=== PATIENT | male | born 1960 | race Caucasian/White ===

== ENCOUNTER 2018-10-31 14:12 | Emergency (ER) | payer BC ==
[2018-10-31 14:37] VITALS: BP 126/89
--- NOTE | 2018-10-31 15:26 | CR ---
Chest: Portable view of the chest was obtained. Comparison: No prior chest x-ray. Heart size is within normal limits for portable technique. Tortuous thoracic aorta is seen. Lungs are clear with no acute parenchymal change. Bony structures are grossly intact. Impression: 1. Nothing acute is seen on portable chest x-ray. Diagnostic code #1
--- NOTE | 2018-10-31 16:42 | EDM.PDOC ---
ED HPI GENERAL MEDICAL PROBLEM - General Chief Complaint: Cardiovascular Problem Stated Complaint: [facility] Time Seen by Provider: 10/31/18 16:06 Source of Information: Reports: Patient, RN Notes Reviewed, Significant Other ( Girlfriend) History Limitations: Reports: No Limitations - History of Present Illness INITIAL COMMENTS - FREE TEXT/NARRATIVE: The patient states that he was digging fence, when he developed a tightness in his throat, but no chest discomfort. He states that he has a history of GERD, but that this sensation was not the same as that. He drove himself home, asked for a little while, then checked his blood pressure. His blood pressure was found to be high, but more concerning was that the blood pressure machine recorded his heart rate to be around 190. He states that he took 2 aspirin and went to lie down, and when he rechecked his blood pressure later, his heart rate was still elevated, therefore EMS was called. EMS reportedly found the patient to be in SVT at around 210 bpm per an ECG, however, this is per their written report - they did not leave the rhythm strip or ECG for us to examine. No associated dyspnea, nausea, diaphoresis, or sense of impending doom. The patient states that the paramedics placed an IV, and that his symptoms then resolved en route to the ED. Here in the ED, the patient states that he feels completely back to normal. The patient denies prior similar symptoms. The patient does not have a PCP. - Related Data Allergies Allergy/AdvReac Type Severity Reaction Status Date / Time No Known Allergies Allergy Verified 10/31/18 14:33 Home Meds: Home Meds . [No Known Home Meds] 05/29/16 [History] Past Medical History Cardiovascular History: Reports: High Cholesterol (untreated) Gastrointestinal History: Reports: GERD Endocrine/Metabolic History: Reports: Obesity/BMI 30+ - Past Surgical History Musculoskeletal Surgical History: Reports: Amputation (left thumb, partial) Social & Family History - Family History Family Medical History: Noncontributory - Tobacco Use Smoking Status *Q: Never Smoker - Caffeine Use Caffeine Use: Reports: Coffee - Alcohol Use Alcohol Use History: Yes Alcohol Use Frequency: Socially (occasionally to excess) - Recreational Drug Use Recreational Drug Use: No - Living Situation & Occupation Living situation: Reports: , with Significant Other (Girlfriend) 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 ED EXAM, GENERAL - Physical Exam Exam: See Below Exam Limited By: No Limitations General Appearance: Alert, WD/WN, No Apparent Distress Eye Exam: Bilateral Eye: EOMI, Normal Inspection Ears: Normal External Exam, Hearing Grossly Normal Nose: Normal Inspection Throat/Mouth: Normal Inspection, Normal Lips, Normal Voice, No Airway Compromise Head: Atraumatic, Normocephalic Neck: Normal Inspection, Full Range of Motion Respiratory/Chest: No Respiratory Distress, Lungs Clear, Normal Breath Sounds, No Accessory Muscle Use Cardiovascular: Normal Peripheral Pulses, Regular Rate, Rhythm, No Gallop, No JVD, No Murmur, No Rub Peripheral Pulses: 4+: Radial (L), Radial (R) GI/Abdominal: Normal Bowel Sounds, Soft, Non-Tender, No Organomegaly, No Distention, No Abnormal Bruit, No Mass, Other (Obese) (Male) Exam: Deferred Rectal (Males) Exam: Deferred Back Exam: Normal Inspection, Full Range of Motion, NT Extremities: Normal Inspection, Normal Range of Motion, No Pedal Edema, Normal Capillary Refill Neurological: Alert, Oriented, Normal Cognition, No Motor/Sensory Deficits Psychiatric: Normal Affect Skin Exam: Warm, Dry, Intact, Normal Color, No Rash EKG INTERPRETATION EKG Date: 10/31/18 Time: 14:33 Rhythm: Other (Sinus tachycardia) Rate (Beats/Min): 103 [place]: Normal P-Wave: Enlarged (LAE) QRS: Normal ST-T: Normal QT: Prolonged (QTc 485 ms) Comparison: NA - No Prior EKG Course - Vital Signs Last Recorded V/S: Last Vital Signs Temp 36.9 C 10/31/18 14:33 Pulse 102 H 10/31/18 14:33 Resp 18 10/31/18 14:33 BP 126/89 10/31/18 14:33 Pulse Ox 99 10/31/18 14:33 - Orders/Labs/Meds Labs: Laboratory Tests 10/31/18 10/31/18 Range/Units 14:25 14:25 WBC 7.38 (4.23-9.07) K/mm3 RBC 5.36 (4.63-6.08) M/mm3 Hgb 15.6 (13.7-17.5) gm/L Hct 46.7 (40.1-51.0) % MCV 87.1 (79.0-92.2) fl MCH 29.1 (25.7-32.2) pg MCHC 33.4 (32.2-35.5) g/dl RDW Std Deviation 43.0 (35.1-43.9) fL Plt Count 164 (163-337) K/mm3 MPV 11.0 (9.4-12.3) fl Neutrophils % (Manual) 54 (40-60) % Band Neutrophils % 0 (0-10) % Lymphocytes % (Manual) 42 H (20-40) % Atypical Lymphs % 0 % Monocytes % (Manual) 3 (2-10) % Eosinophils % (Manual) 0 L (0.8-7.0) % Basophils % (Manual) 1 (0.2-1.2) Platelet Estimate Adequate Plt Morphology Comment Normal RBC Morph Comment Normal Sodium 142 (136-145) mEq/L Potassium 3.9 (3.5-5.1) mEq/L Chloride 105 (98-107) mEq/L Carbon Dioxide 25 (21-32) mEq/L Anion Gap 15.9 H (5-15) BUN 18 (7-18) mg/dL Creatinine 1.1 (0.7-1.3) mg/dL Est Cr Clr Drug Dosing TNP Estimated GFR (MDRD) > 60 (>60) mL/min BUN/Creatinine Ratio 16.4 (14-18) Glucose 86 (74-106) mg/dL Calcium 8.9 (8.5-10.1) mg/dL Total Bilirubin 0.6 (0.2-1.0) mg/dL AST 35 (15-37) U/L ALT 53 (16-63) U/L Alkaline Phosphatase 70 (46-116) U/L Troponin I < 0.017 (0.00-0.056) ng/mL Total Protein 7.5 (6.4-8.2) g/dl Albumin 4.0 (3.4-5.0) g/dl Globulin 3.5 gm/dL Albumin/Globulin Ratio 1.1 (1-2) - Re-Assessments/Exams Free Text/Narrative Re-Assessment/Exam: 10/31/18 16:34 Portable chest x-ray is read by Dr. Lyn as: 1. Nothing acute is seen on portable chest x-ray. The patient's CBC is unremarkable. His CMP is unremarkable. His troponin is undetectably low. While the paramedics documented in their note that the patient had SVT at 210 bpm, they did not actually leave the rhythm strip or ECG that they indicated they collected, therefore I will have to take their word for it that the patient was in SVT. Today's workup is unremarkable. I will discharge the patient home with a referral to a PCP, where he can have a thorough general physical exam, that might include a cardiac stress test, check of cholesterol, as well as a colonoscopy, evaluation for prostate disorders, etc. 10/31/18 16:57 The rhythm strip acquired by the paramedics has been faxed to us. The patient does in fact appear to have been in SVT at around 200 bpm. The rhythm is narrow complex and regular. No P waves are seen. Departure - Departure Time of Disposition: 16:35 Disposition: Home, Self-Care 01 Condition: Good Clinical Impression: SVT (supraventricular tachycardia) Instructions: Supraventricular Tachycardia, Adult, [id number] Referrals: Jonny Alexander MD [Physician] - Forms: ED Department Discharge Additional Instructions: You were seen in the emergency room after developing tightness in her throat and a rapid heartbeat. The air medics indicated that you were in SVT, which resolved on its own prior to arriving to the ER. Workup in the ER included blood work, a chest x-ray, and an ECG, all of which were unremarkable. If your symptoms recur, we recommend that you return to the ER as soon as possible. Do not drive your self. We recommend that you follow-up with Dr. Jonyn Chavez in the clinic, to establish a primary care physician. If any other problems, please do not hesitate to return to the ER.
== END 2018-10-31 16:58 | disposition home or self-care (01) ==
LOC: JD.ED 14:12
DX: I47.1 Supraventricular tachycardia (principal); E66.9 Obesity, unspecified
CPT/HCPCS: 36415; 71045; 71045-26; 80053; 84484; 85007; 85027; 93005; 99285-25

== ENCOUNTER 2021-01-21 19:07 | Inpatient (IN) | payer BC ==
[2021-01-21] MEDS ORDERED: Ondansetron 4 MG/2 ML SDV IVPUSH ONE (19:27)
[2021-01-21] MEDS ORDERED: Sodium Chloride 0.9% 10 ML Syringe FLUSH PRN (19:27)
[2021-01-21] MEDS ORDERED: Dexamethasone 4 MG/ML SDV IVPUSH ONE (19:29)
[2021-01-21] MEDS ORDERED: Sodium Chloride 0.9% 1,000 ML IV SCH (19:30)
--- NOTE | 2021-01-21 19:35 | EDM.PDOC ---
ED HPI GENERAL MEDICAL PROBLEM - General Chief Complaint: Chest Pain Stated Complaint: [facility] Time Seen by Provider: 01/21/21 19:19 Source of Information: Reports: Patient, EMS History Limitations: Reports: No Limitations - History of Present Illness INITIAL COMMENTS - FREE TEXT/NARRATIVE: The patient presents by [facility] with cough, fever, shortness of breath and nausea. He is COVID 19 positive for the past 8 days. He has been laying on his stomach and watching his oxygen saturations. He has been nauseated and not able to eat or drink much. He has a low grade temp. He has some diarrhea. He has been coughing up some yellow phlegm but today he coughed up some blood. He did not get the vaccine. He has no chest pain. He has no abdominal pain. EMS said his oxygen saturations were in the upper 80s. They have him on a nonrebreather. He has no history of hypertension or diabetes. He does have high cholesterol. Onset: Gradual Duration: Day(s): (8) Severity: Moderate Improves with: Reports: None Worsens with: Reports: None Associated Symptoms: Reports: Cough, Fever/Chills, Nausea/Vomiting, Shortness of Breath. Denies: Chest Pain, Headaches - Related Data Allergies Allergy/AdvReac Type Severity Reaction Status Date / Time No Known Allergies Allergy Verified 10/31/18 14:33 Home Meds: Home Meds . [No Known Home Meds] 05/29/16 [History] Past Medical History - Past Health History Medical/Surgical History: Denies Medical/Surgical History Cardiovascular History: Reports: High Cholesterol (untreated) Gastrointestinal History: Reports: GERD Genitourinary History: Reports: Renal Calculus Musculoskeletal History: Reports: Other (See Below) Other Musculoskeletal History: thumb cut off and replaced Endocrine/Metabolic History: Reports: Obesity/BMI 30+ - Past Surgical History Musculoskeletal Surgical History: Reports: Amputation (left thumb, partial) Social & Family History - Family History Family Medical History: No Pertinent Family History - Caffeine Use Caffeine Use: Reports: Coffee - Living Situation & Occupation Living situation: Reports: , with Significant Other (Girlfriend) 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 Denies: Abdominal Pain, Vomiting Musculoskeletal: Reports: No Symptoms ED EXAM, GENERAL - Physical Exam Exam: See Below Exam Limited By: No Limitations General Appearance: Alert, No Apparent Distress Ears: Normal External Exam Nose: Normal Inspection Head: Atraumatic, Normocephalic Neck: Normal Inspection Respiratory/Chest: No Respiratory Distress, Decreased Breath Sounds Cardiovascular: Regular Rate, Rhythm, No Edema, No Murmur GI/Abdominal: Soft, Non-Tender, No Organomegaly, No Mass Back Exam: Normal Inspection Extremities: Normal Inspection Neurological: Alert, Oriented, No Motor/Sensory Deficits Course - Vital Signs Last Recorded V/S: Last Vital Signs Temp Pulse 68 01/22/21 05:35 Resp 18 01/22/21 05:35 BP 120/70 01/22/21 05:35 Pulse Ox 94 L 01/22/21 05:35 - Orders/Labs/Meds Orders: Active Orders 24 hr Category Date Time Status Cardiac Monitoring [RC] . DIRECTED Care 01/21/21 19:28 Active Oxygen Therapy [RC] PRN Care 01/21/21 19:28 Active Peripheral IV Care [RC] . DIRECTED Care 01/21/21 19:28 Active HEPATIC FUNCTION PANEL,HFP [CHEM] DAILY Lab 01/22/21 21:45 Ordered HEPATIC FUNCTION PANEL,HFP [CHEM] DAILY Lab 01/23/21 21:45 Ordered HEPATIC FUNCTION PANEL,HFP [CHEM] DAILY Lab 01/24/21 21:45 Ordered HEPATIC FUNCTION PANEL,HFP [CHEM] DAILY Lab 01/25/21 21:45 Ordered Sodium Chloride 0.9% [Normal Saline] 1,000 ml Med 01/21/21 19:30 Active IV .BOLUS Sodium Chloride 0.9% [Saline Flush] Med 01/21/21 19:27 Active 10 ml FLUSH ASDIRECTED PRN ED Antiemetic Medication Reflex [OM.PC] Stat Oth 01/21/21 19:28 Ordered Peripheral IV Insertion Adult [OM.PC] Stat Oth 01/21/21 19:27 Ordered Medication Orders Sodium Chloride (Normal Saline) 1,000 mls @ 1,000 mls/hr IV .BOLUS JAYDA Last Admin: 01/21/21 20:22 Dose: 1,000 mls/hr Documented by: KASIA Sodium Chloride (Sodium Chloride 0.9% 10 Ml Syringe) 10 ml FLUSH ASDIRECTED PRN PRN Reason: Keep Vein Open Last Admin: 01/21/21 20:20 Dose: 10 ml Documented by: KASIA Labs: Laboratory Tests 01/21/21 01/21/21 01/21/21 Range/Units 19:58 19:58 19:58 WBC 3.68 L (4.23-9.07) K/mm3 RBC 4.63 (4.63-6.08) M/mm3 Hgb 13.6 L D (13.7-17.5) gm/dl Hct 40.0 L (40.1-51.0) % MCV 86.4 (79.0-92.2) fl MCH 29.4 (25.7-32.2) pg MCHC 34.0 (32.2-35.5) g/dl RDW Std Deviation 39.8 (35.1-43.9) fL Plt Count 130 L (163-337) K/mm3 MPV 9.8 (9.4-12.3) fl Neut % (Auto) 69.8 H (34.0-67.9) % Lymph % (Auto) 21.5 L (21.8-53.1) % [place] % (Auto) 7.6 (5.3-12.2) % Eos % (Auto) 0.3 L (0.8-7.0) Baso % (Auto) 0.3 (0.1-1.2) % Neut # (Auto) 2.57 (1.78-5.38) K/mm3 Lymph # (Auto) 0.79 L (1.32-3.57) K/mm3 [place] # (Auto) 0.28 L (0.30-0.82) K/mm3 Eos # (Auto) 0.01 L (0.04-0.54) K/mm3 Baso # (Auto) 0.01 (0.01-0.08) K/mm3 Manual Slide Review PT 10.7 (9.7-12.0) SECONDS INR 1.00 APTT 34.6 H (21.7-31.4) SECONDS D-Dimer, Quantitative 0.47 (0.19-0.50) mg/L Sodium 135 L (136-145) mEq/L Potassium 4.2 (3.5-5.1) mEq/L Chloride 97 L (98-107) mEq/L Carbon Dioxide 29 (21-32) mEq/L Anion Gap 13.2 (5-15) BUN 11 (7-18) mg/dL Creatinine 1.0 (0.7-1.3) mg/dL Est Cr Clr Drug Dosing TNP Estimated GFR (MDRD) > 60 (>60) mL/min BUN/Creatinine Ratio 11.0 L (14-18) Glucose 106 H (70-99) mg/dL Lactic Acid (0.4-2.0) mmol/L Calcium 7.8 L (8.5-10.1) mg/dL Total Bilirubin 0.5 (0.2-1.0) mg/dL Direct Bilirubin (0.0-0.2) mg/dl Indirect Bilirubin AST 32 (15-37) U/L ALT 39 (16-63) U/L Alkaline Phosphatase 58 (46-116) U/L C-Reactive Protein 8.4 H* (<1.0) mg/dL Total Protein 6.8 (6.4-8.2) g/dl Albumin 3.1 L (3.4-5.0) g/dl Globulin 3.7 gm/dL Albumin/Globulin Ratio 0.8 L (1-2) 01/21/21 01/21/21 Range/Units 19:58 21:50 WBC (4.23-9.07) K/mm3 RBC (4.63-6.08) M/mm3 Hgb (13.7-17.5) gm/dl Hct (40.1-51.0) % MCV (79.0-92.2) fl MCH (25.7-32.2) pg MCHC (32.2-35.5) g/dl RDW Std Deviation (35.1-43.9) fL Plt Count (163-337) K/mm3 MPV (9.4-12.3) fl Neut % (Auto) (34.0-67.9) % Lymph % (Auto) (21.8-53.1) % [place] % (Auto) (5.3-12.2) % Eos % (Auto) (0.8-7.0) Baso % (Auto) (0.1-1.2) % Neut # (Auto) (1.78-5.38) K/mm3 Lymph # (Auto) (1.32-3.57) K/mm3 [place] # (Auto) (0.30-0.82) K/mm3 Eos # (Auto) (0.04-0.54) K/mm3 Baso # (Auto) (0.01-0.08) K/mm3 Manual Slide Review PT (9.7-12.0) SECONDS INR APTT (21.7-31.4) SECONDS D-Dimer, Quantitative (0.19-0.50) mg/L Sodium (136-145) mEq/L Potassium (3.5-5.1) mEq/L Chloride (98-107) mEq/L Carbon Dioxide (21-32) mEq/L Anion Gap (5-15) BUN (7-18) mg/dL Creatinine (0.7-1.3) mg/dL Est Cr Clr Drug Dosing Estimated GFR (MDRD) (>60) mL/min BUN/Creatinine Ratio (14-18) Glucose (70-99) mg/dL Lactic Acid 0.7 (0.4-2.0) mmol/L Calcium (8.5-10.1) mg/dL Total Bilirubin 0.5 (0.2-1.0) mg/dL Direct Bilirubin 0.20 (0.0-0.2) mg/dl Indirect Bilirubin 0.30 AST 34 (15-37) U/L ALT 40 (16-63) U/L Alkaline Phosphatase 58 (46-116) U/L C-Reactive Protein (<1.0) mg/dL Total Protein 6.7 (6.4-8.2) g/dl Albumin 3.1 L (3.4-5.0) g/dl Globulin 3.6 gm/dL Albumin/Globulin Ratio 0.9 L (1-2) Meds: Medications Generic Name Dose Route Start Last Admin Trade Name Freq PRN Reason Stop Dose Admin Sodium Chloride 1,000 mls @ 1,000 mls/hr 01/21/21 19:30 01/21/21 20:22 Normal Saline IV 1,000 mls/hr .BOLUS JAYDA Administration Sodium Chloride 10 ml 01/21/21 19:27 01/21/21 20:20 Sodium Chloride 0.9% 10 Ml Syringe FLUSH 10 ml ASDIRECTED PRN Administration Keep Vein Open Discontinued Medications Generic Name Dose Route Start Last Admin Trade Name Benedicto PRN Reason Stop Dose Admin Dexamethasone 6 mg 01/21/21 19:29 01/21/21 20:22 Dexamethasone 4 Mg/Ml Sdv IVPUSH 01/21/21 19:30 6 mg ONETIME ONE Administration Remdesivir 200 mg/ Sodium 250 mls @ 250 mls/hr 01/21/21 21:34 01/21/21 22:16 Chloride IV 01/21/21 21:35 250 mls/hr ONETIME ONE Administration Iopamidol 100 ml 01/21/21 19:43 Iopamidol 755 Mg/Ml 100 Ml Bottle IVPUSH 01/21/21 19:44 ONETIME ONE Ondansetron HCl 4 mg 01/21/21 19:27 01/21/21 20:18 Ondansetron 4 Mg/2 Ml Sdv IVPUSH 01/21/21 19:28 4 mg ONETIME ONE Administration - Re-Assessments/Exams Free Text/Narrative Re-Assessment/Exam: 01/21/21 19:48 I ordered oxygen, IV NS 1L bolus, zofran 4mg IV, dexamethasone, chest CT and labs. 01/22/21 06:37 His WBC was a little low at 3.68. His PTT was elevated at 34.6. His D-dimer was negative. His Na was a little low at 135. His lactic acid was normal. His CRP was elevated at 8.4. The CT angio of his chest shows no findings of pulmonary embolism. Diffuse parenchymal change within both lungs having the appearance of so-called COVID pneumonia. Numerous lymph nodes within the mediastinum possibly relating to the pneumonia. Recommend follow-up chest CT study in 6 months to confirm that these do not increase in size. I feel he needs to be admitted. We have no beds here. Both [facility] are full. He would like to go to [facility] if he can. [place] closer to that area. I called [facility]. They may have room in the morning. I will call back around 7am. 01/22/21 07:21 I called [facility] and they have no beds now. I called both hospitals in [place] and they are full. I also called [facility] in [place] and they could not take him. I also called [facility] and they did not have a bed. 01/22/21 08:10 I called [facility] in [place] and there could not take him. They recommended [facility] in [place]. I called there and they had no beds. I have a call out to [facility] in [place], [place]. 01/22/21 08:[address] [facility] in [place], [place] and they were full also. 01/22/21 08:32 I called our hospitalist and they may have 2 beds opening up. He will have to wait in the ER until one opens up. Departure - Departure Time of Disposition: 08:40 Disposition: Admitted As Inpatient 66 Condition: Poor Clinical Impression: COVID-19, Pneumonia due to COVID-19 virus, Hypoxia - Discharge Information Referrals: PCP,None [Primary Care Provider] - Forms: ED Department Discharge Sepsis Event Note (ED) - Focused Exam Vital Signs: Vital Signs Pulse Resp BP Pulse Ox 01/22/21 05:35 68 18 120/70 94 L 01/22/21 04:37 83 20 118/73 96 01/22/21 03:20 80 18 94 L - My Orders Last 24 Hours: My Active Orders 01/21/21 19:27 Sodium Chloride 0.9% [Saline Flush] 10 ml FLUSH ASDIRECTED PRN Peripheral IV Insertion Adult [OM.PC] Stat 01/21/21 19:28 Cardiac Monitoring [RC] . DIRECTED Oxygen Therapy [RC] PRN Peripheral IV Care [RC] . DIRECTED ED Antiemetic Medication Reflex [OM.PC] Stat 01/21/21 19:30 Sodium Chloride 0.9% [Normal Saline] 1,000 ml IV .BOLUS 01/22/21 21:45 HEPATIC FUNCTION PANEL,HFP [CHEM] DAILY 01/23/21 21:45 HEPATIC FUNCTION PANEL,HFP [CHEM] DAILY 01/24/21 21:45 HEPATIC FUNCTION PANEL,HFP [CHEM] DAILY 01/25/21 21:45 HEPATIC FUNCTION PANEL,HFP [CHEM] DAILY - Assessment/Plan Last 24 Hours: My Active Orders 01/21/21 19:27 Sodium Chloride 0.9% [Saline Flush] 10 ml FLUSH ASDIRECTED PRN Peripheral IV Insertion Adult [OM.PC] Stat 01/21/21 19:28 Cardiac Monitoring [RC] . DIRECTED Oxygen Therapy [RC] PRN Peripheral IV Care [RC] . DIRECTED ED Antiemetic Medication Reflex [OM.PC] Stat 01/21/21 19:30 Sodium Chloride 0.9% [Normal Saline] 1,000 ml IV .BOLUS 01/22/21 21:45 HEPATIC FUNCTION PANEL,HFP [CHEM] DAILY 01/23/21 21:45 HEPATIC FUNCTION PANEL,HFP [CHEM] DAILY 01/24/21 21:45 HEPATIC FUNCTION PANEL,HFP [CHEM] DAILY 01/25/21 21:45 HEPATIC FUNCTION PANEL,HFP [CHEM] DAILY
[2021-01-21] MEDS ORDERED: Iopamidol 755 Mg/ML 100 ML Bottle IVPUSH ONE (19:43)
--- NOTE | 2021-01-21 21:24 | CT ---
CT chest Technique: Multiple axial sections through the chest were obtained. Intravenous contrast was utilized. Study has been performed as a pulmonary angiogram protocol. Comparison: No prior chest CT is available, prior chest x-ray of 10/31/18 is available. Findings: Pulmonary arteries are well opacified. No filling defects are seen to indicate pulmonary embolism. Thoracic aorta shows no aneurysm. Multiple small scattered lymph nodes are seen within the mediastinum which are more numerous than usually seen. No pericardial thickening is seen. No axillary adenopathy is noted. Visualized portions of the upper abdominal structures show a small cyst within the right kidney measuring 2.3 cm. No other acute finding is seen within the abdomen. Lung window settings were reviewed which show diffuse parenchymal change throughout both lungs. No pleural effusions are seen. Bone window settings were reviewed which show minimal scattered degenerative change within the spine. No acute osseous abnormality is appreciated. Impression: 1. No findings of pulmonary embolism. 2. Diffuse parenchymal change within both lungs having the appearance of so-called COVID pneumonia. 3. Numerous lymph nodes within the mediastinum possibly relating to the pneumonia. Recommend follow-up chest CT study in 6 months to confirm that these do not increase in size. 4. Other findings believed to be incidental as noted above. Diagnostic code #3
[2021-01-21] MEDS ORDERED: REMDESIVIR 200 MG in Sodium Chloride 0.9% 250 ML IV ONE (21:34)
[2021-01-22] MEDS ORDERED: Codeine/Promethazine 10-6.25 MG/5 ML Syrup 5 ML UD Cup PO ONE (08:42)
[2021-01-22] MEDS ORDERED: Acetaminophen 325 MG Tab PO PRN (09:41)
[2021-01-22] MEDS ORDERED: Albuterol 0.083% 2.5 MG/3 ML Neb Soln NEB PRN (09:46)
[2021-01-22] MEDS ORDERED: Ondansetron 4 MG Tab.DIS PO PRN (09:46)
[2021-01-22] MEDS ORDERED: Docusate Sodium 100 MG Cap PO PRN (09:46)
[2021-01-22] MEDS ORDERED: HYDROmorphone 0.5 MG/0.5 ML Syringe IVPUSH PRN (09:46)
[2021-01-22] MEDS ORDERED: Ondansetron 4 MG/2 ML SDV IV PRN (09:46)
[2021-01-22] MEDS ORDERED: oxyCODONE 5 MG Tab PO PRN (09:46)
[2021-01-22] MEDS: Heparin Sodium 5,000 Units/ML Vial SUBCUT SCH ×2 (11:40→17:42)
[2021-01-22] MEDS: Zinc Sulfate 220 MG Cap PO SCH (11:40)
[2021-01-22] MEDS: Famotidine 20 MG Tab PO SCH (11:40)
[2021-01-22] MEDS: Dexamethasone 4 MG Tab PO SCH (11:40)
--- NOTE | 2021-01-22 13:35 | PCM.HP.2 ---
<Freeman Holley M - Last Filed: 01/22/21 14:14> H&P History of Present Illness - General Date of Service: 01/22/21 Admit Problem/Dx: Admission Diagnosis/Problem Admission Diagnosis/Problem Hypoxia Source of Information: Patient History Limitations: Reports: No Limitations - History of Present Illness Initial Comments - Free Text/Narative: 60-year-old male presented to the emergency department with complaints of worsening Covid symptoms. Patient states that he developed symptoms of Covid about 8 days ago. 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 He went to bed that evening and woke the next morning with fever, headache and body aches and suspected that he was getting Covid. He elected to go to the clinic on January 17, 2021 when he tested positive. He states that he has had a decreased appetite and has been nauseated however he has not vomited. He has complained of subjective fever. He did have diarrhea for 1 day but states that has resolved. Chief complaint is shortness of breath and worsening cough productive of some blood the past couple of days however he states that today it seems to have resolved as well. He did admit that he had a Z-Av at home and elected to take this and completed the course of antibiotic yesterday. He did not get the Covid vaccination. Patient was transferred to the emergency department with EMS and they state that his oxygen saturations were in the upper 80s. He has a history of carotid enterectomy about 1 year ago however he states he does not take any prescription medications. He denies a smoking history however he states that he does have a pretty substantial history for alcohol consumption however he states that he stopped drinking about 60 days ago. While in the emergency department labs were completed which revealed a WBC of 3.68, hemoglobin 13.6, hematocrit 40.0, platelet count 130, pro time 10.7, INR 1.0, PTT 34.6, D-dimer 0.47, sodium 135, potassium 4.2, chloride 97, anion gap 13.2, BUN 11, creatinine 1.0, glucose 106, lactic acid 0.7, total bilirubin 0.5, AST 3.2, ALT 39, alk phos 58, C-reactive protein 8.4 The patient did receive a liter of normal saline, 6 mg of dexamethasone IV, remdesivir 200 mg IV, and Zofran [address] angio of his chest shows no findings of pulmonary embolism. Diffuse parenchymal change within both lungs having the appearance of so-called Covid pneumonia. Numerous lymph nodes within the mediastinum possibly relating to the pneumonia. Recommend follow-up chest CT study in 6 months to confirm that these do not increase in size. Additional labs were completed which did show a vitamin D of 31.9 which is at the very low end of normal, ferritin was 2413, and LDH was 324. - Related Data Allergies/Adverse Reactions: Allergies Allergy/AdvReac Type Severity Reaction Status Date / Time No Known Allergies Allergy Verified 10/31/18 14:33 Home Medications: Home Meds Lansoprazole [Prevacid] 30 mg PO BID 01/22/21 [History] Past Medical History - Past Health History Medical/Surgical History: Denies Medical/Surgical History HEENT History: Reports: None Cardiovascular History: Reports: High Cholesterol Respiratory History: Reports: None Gastrointestinal History: Reports: GERD, Other (See Below) Other Gastrointestinal History: Inflammed esophagus disease. three stomach ulcers 10/2020 Genitourinary History: Reports: None, Renal Calculus Musculoskeletal History: Reports: Other (See Below) Other Musculoskeletal History: thumb cut off and replaced Neurological History: Reports: None Other Neuro History: TIA November 2019 Psychiatric History: Reports: None Endocrine/Metabolic History: Reports: Obesity/BMI 30+ Hematologic History: Reports: None Immunologic History: Reports: None Oncologic (Cancer) History: Reports: None Dermatologic History: Reports: None - Infectious Disease History Infectious Disease History: Reports: Novel Coronavirus, SARS - Past Surgical History Head Surgeries/Procedures: Reports: None Respiratory Surgical History: Reports: None Other GI Surgeries/Procedures: 10/2020 esophagus biopsy Male Surgical History: Reports: None Musculoskeletal Surgical History: Reports: Amputation Social & Family History - Family History Family Medical History: No Pertinent Family History - Tobacco Use Tobacco Use Status *Q: Never Tobacco User Second Hand Smoke Exposure: No - Caffeine Use Caffeine Use: Reports: Coffee Caffeine Use Comment: Patient reports he may drink around 6 cups per day - Recreational Drug Use Recreational Drug Use: No - Living Situation & Occupation Living situation: Reports: , with Significant Other (Girlfriend) 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 Exam - Exam Exam: See Below - Vital Signs Vital Signs: Last Vital Signs Temp 98.2 F 01/22/21 10:03 Pulse 77 01/22/21 10:03 Resp 16 01/22/21 10:03 BP 121/69 01/22/21 10:03 Pulse Ox 97 01/22/21 10:03 Weight: 207 lb 3.2 oz - Exam Quality Assessment: Supplemental Oxygen (3 L per nasal cannula), DVT Prophylaxis (Heparin) General: Alert, Oriented, Cooperative, Mild Distress HEENT: Hearing Intact, Mucosa Moist & [place], Nares Patent Neck: Supple, Trachea Midline Lungs: Decreased Breath Sounds, Crackles (Normal bases), Rhonchi (Right middle and lower lobe) Cardiovascular: Regular Rate, Regular Rhythm GI/Abdominal Exam: Normal Bowel Sounds, Soft, Non-Tender, No Distention (Male) Exam: Deferred Rectal (Males) Exam: Deferred Back Exam: Normal Inspection Extremities: Normal Inspection, Normal Range of Motion, Non-Tender, No Pedal Edema, Normal Capillary Refill Peripheral Pulses: 2+: Radial (L), Radial (R) Skin: Warm, Dry, Intact Neuro Extensive - Mental Status: Alert, Oriented x3, Normal Mood/Affect, Normal Cognition, Memory Intact Psychiatric: Alert, Normal Affect, Normal Mood - Patient Data Lab Results Last 24 hrs: Laboratory Results - last 24 hr 01/21/21 01/21/21 01/21/21 Range/Units 19:58 19:58 19:58 WBC 3.68 L (4.23-9.07) K/mm3 RBC 4.63 (4.63-6.08) M/mm3 Hgb 13.6 L D (13.7-17.5) gm/dl Hct 40.0 L (40.1-51.0) % MCV 86.4 (79.0-92.2) fl MCH 29.4 (25.7-32.2) pg MCHC 34.0 (32.2-35.5) g/dl RDW Std Deviation 39.8 (35.1-43.9) fL Plt Count 130 L (163-337) K/mm3 MPV 9.8 (9.4-12.3) fl Neut % (Auto) 69.8 H (34.0-67.9) % Lymph % (Auto) 21.5 L (21.8-53.1) % Stanton % (Auto) 7.6 (5.3-12.2) % Eos % (Auto) 0.3 L (0.8-7.0) Baso % (Auto) 0.3 (0.1-1.2) % Neut # (Auto) 2.57 (1.78-5.38) K/mm3 Lymph # (Auto) 0.79 L (1.32-3.57) K/mm3 Stanton # (Auto) 0.28 L (0.30-0.82) K/mm3 Eos # (Auto) 0.01 L (0.04-0.54) K/mm3 Baso # (Auto) 0.01 (0.01-0.08) K/mm3 Manual Slide Review PT 10.7 (9.7-12.0) SECONDS INR 1.00 APTT 34.6 H (21.7-31.4) SECONDS D-Dimer, Quantitative 0.47 (0.19-0.50) mg/L Sodium 135 L (136-145) mEq/L Potassium 4.2 (3.5-5.1) mEq/L Chloride 97 L (98-107) mEq/L Carbon Dioxide 29 (21-32) mEq/L Anion Gap 13.2 (5-15) BUN 11 (7-18) mg/dL Creatinine 1.0 (0.7-1.3) mg/dL Est Cr Clr Drug Dosing TNP Estimated GFR (MDRD) > 60 (>60) mL/min BUN/Creatinine Ratio 11.0 L (14-18) Glucose 106 H (70-99) mg/dL Lactic Acid (0.4-2.0) mmol/L Calcium 7.8 L (8.5-10.1) mg/dL Ferritin (26-388) ng/ml Total Bilirubin 0.5 (0.2-1.0) mg/dL Direct Bilirubin (0.0-0.2) mg/dl Indirect Bilirubin AST 32 (15-37) U/L ALT 39 (16-63) U/L Alkaline Phosphatase 58 (46-116) U/L Lactate Dehydrogenase (85-227) U/L C-Reactive Protein 8.4 H* (<1.0) mg/dL Total Protein 6.8 (6.4-8.2) g/dl Albumin 3.1 L (3.4-5.0) g/dl Globulin 3.7 gm/dL Albumin/Globulin Ratio 0.8 L (1-2) Vitamin D 25-Hydroxy (30.0-100.0) ng/ml 01/21/21 01/21/21 01/22/21 Range/Units 19:58 21:50 10:10 WBC (4.23-9.07) K/mm3 RBC (4.63-6.08) M/mm3 Hgb (13.7-17.5) gm/dl Hct (40.1-51.0) % MCV (79.0-92.2) fl MCH (25.7-32.2) pg MCHC (32.2-35.5) g/dl RDW Std Deviation (35.1-43.9) fL Plt Count (163-337) K/mm3 MPV (9.4-12.3) fl Neut % (Auto) (34.0-67.9) % Lymph % (Auto) (21.8-53.1) % Stanton % (Auto) (5.3-12.2) % Eos % (Auto) (0.8-7.0) Baso % (Auto) (0.1-1.2) % Neut # (Auto) (1.78-5.38) K/mm3 Lymph # (Auto) (1.32-3.57) K/mm3 Stanton # (Auto) (0.30-0.82) K/mm3 Eos # (Auto) (0.04-0.54) K/mm3 Baso # (Auto) (0.01-0.08) K/mm3 Manual Slide Review PT (9.7-12.0) SECONDS INR APTT (21.7-31.4) SECONDS D-Dimer, Quantitative (0.19-0.50) mg/L Sodium (136-145) mEq/L Potassium (3.5-5.1) mEq/L Chloride (98-107) mEq/L Carbon Dioxide (21-32) mEq/L Anion Gap (5-15) BUN (7-18) mg/dL Creatinine (0.7-1.3) mg/dL Est Cr Clr Drug Dosing Estimated GFR (MDRD) (>60) mL/min BUN/Creatinine Ratio (14-18) Glucose (70-99) mg/dL Lactic Acid 0.7 (0.4-2.0) mmol/L Calcium (8.5-10.1) mg/dL Ferritin 2413 H (26-388) ng/ml Total Bilirubin 0.5 (0.2-1.0) mg/dL Direct Bilirubin 0.20 (0.0-0.2) mg/dl Indirect Bilirubin 0.30 AST 34 (15-37) U/L ALT 40 (16-63) U/L Alkaline Phosphatase 58 (46-116) U/L Lactate Dehydrogenase (85-227) U/L C-Reactive Protein (<1.0) mg/dL Total Protein 6.7 (6.4-8.2) g/dl Albumin 3.1 L (3.4-5.0) g/dl Globulin 3.6 gm/dL Albumin/Globulin Ratio 0.9 L (1-2) Vitamin D 25-Hydroxy (30.0-100.0) ng/ml 01/22/21 01/22/21 Range/Units 10:10 10:10 WBC (4.23-9.07) K/mm3 RBC (4.63-6.08) M/mm3 Hgb (13.7-17.5) gm/dl Hct (40.1-51.0) % MCV (79.0-92.2) fl MCH (25.7-32.2) pg MCHC (32.2-35.5) g/dl RDW Std Deviation (35.1-43.9) fL Plt Count (163-337) K/mm3 MPV (9.4-12.3) fl Neut % (Auto) (34.0-67.9) % Lymph % (Auto) (21.8-53.1) % Stanton % (Auto) (5.3-12.2) % Eos % (Auto) (0.8-7.0) Baso % (Auto) (0.1-1.2) % Neut # (Auto) (1.78-5.38) K/mm3 Lymph # (Auto) (1.32-3.57) K/mm3 Stanton # (Auto) (0.30-0.82) K/mm3 Eos # (Auto) (0.04-0.54) K/mm3 Baso # (Auto) (0.01-0.08) K/mm3 Manual Slide Review PT (9.7-12.0) SECONDS INR APTT (21.7-31.4) SECONDS D-Dimer, Quantitative (0.19-0.50) mg/L Sodium (136-145) mEq/L Potassium (3.5-5.1) mEq/L Chloride (98-107) mEq/L Carbon Dioxide (21-32) mEq/L Anion Gap (5-15) BUN (7-18) mg/dL Creatinine (0.7-1.3) mg/dL Est Cr Clr Drug Dosing Estimated GFR (MDRD) (>60) mL/min BUN/Creatinine Ratio (14-18) Glucose (70-99) mg/dL Lactic Acid (0.4-2.0) mmol/L Calcium (8.5-10.1) mg/dL Ferritin (26-388) ng/ml Total Bilirubin 0.4 (0.2-1.0) mg/dL Direct Bilirubin 0.10 (0.0-0.2) mg/dl Indirect Bilirubin 0.30 AST 38 H (15-37) U/L ALT 45 (16-63) U/L Alkaline Phosphatase 62 (46-116) U/L Lactate Dehydrogenase 324 H (85-227) U/L C-Reactive Protein (<1.0) mg/dL Total Protein 7.5 (6.4-8.2) g/dl Albumin 3.3 L (3.4-5.0) g/dl Globulin 4.2 gm/dL Albumin/Globulin Ratio 0.8 L (1-2) Vitamin D 25-Hydroxy 31.9 (30.0-100.0) ng/ml Result Diagrams: 01/21/21 19:58 01/21/21 19:58 Sepsis Event Note - Evaluation Sepsis Screening Result: Possible Sepsis Risk - Focused Exam Vital Signs: Vital Signs Temp Pulse Pulse Resp BP BP Pulse Ox 01/22/21 10:03 98.2 F 77 16 121/69 97 01/22/21 05:35 68 18 120/70 94 L 01/22/21 04:37 83 20 118/73 96 01/22/21 03:20 80 18 94 L - Problem List (1) COVID-19 SNOMED Code(s): 832868992 ICD Code: U07.1 - COVID-19 Status: Acute Priority: High Current Visit: Yes (2) Hypoxia SNOMED Code(s): 229558136 ICD Code: R09.02 - HYPOXEMIA Status: Acute Priority: High Current Visit: Yes (3) Pneumonia due to COVID-19 virus SNOMED Code(s): 678932156452785046 ICD Code: U07.1 - COVID-19; J12.82 - PNEUMONIA DUE TO CORONAVIRUS DISEASE 2019 Status: Acute Priority: High Current Visit: Yes Problem List Initiated/Reviewed/Updated: Yes Orders Last 24hrs: Active Orders 24 hr Category Date Time Status Patient Status [ADT] Routine ADT 01/22/21 09:01 Active Cardiac Monitoring [RC] . DIRECTED Care 01/21/21 19:28 Active Height and Weight [RC] 0600 Care 01/22/21 09:46 Active Intake and Output [RC] 04,16 Care 01/22/21 09:46 Active Nurse Communication: Isolation [RC] ASDIRECTED Care 01/22/21 09:41 Active Oxygen Therapy [RC] PRN Care 01/21/21 19:28 Active Positioning, Patient [RC] ASDIRECTED Care 01/22/21 09:41 Active RT Aerosol Therapy [RC] ASDIRECTED Care 01/22/21 09:50 Active RT Incentive Spirometry [RC] ASDIRECTED Care 01/22/21 09:41 Active Up to Chair [RC] ASDIRECTED Care 01/22/21 09:46 Active Vital Signs [RC] Q4HR Care 01/22/21 09:53 Active Consult to Case Management/[employer] Counselor [CONS] Cons 01/22/21 09:46 Active Routine Respiratory Care Assess and Treatment [CONS] Routine Cons 01/22/21 09:51 Active Regular Diet [DIET] Diet 01/22/21 Lunch Active BASIC METABOLIC PANEL,BMP [CHEM] DAILY Lab 01/23/21 05:11 Ordered BASIC METABOLIC PANEL,BMP [CHEM] DAILY Lab 01/24/21 05:11 Ordered BASIC METABOLIC PANEL,BMP [CHEM] DAILY Lab 01/25/21 05:11 Ordered BASIC METABOLIC PANEL,BMP [CHEM] DAILY Lab 01/26/21 05:11 Ordered BASIC METABOLIC PANEL,[facility] [CHEM] DAILY Lab 01/27/21 05:11 Ordered C-REACTIVE PROTEIN [CHEM] Q48H Lab 01/24/21 09:41 Ordered C-REACTIVE PROTEIN [CHEM] Q48H Lab 01/26/21 09:41 Ordered C-REACTIVE PROTEIN [CHEM] Q48H Lab 01/28/21 09:41 Ordered C-REACTIVE PROTEIN [CHEM] Q48H Lab 01/30/21 09:41 Ordered C-REACTIVE PROTEIN [CHEM] Q48H Lab 02/01/21 09:41 Ordered CBC WITH AUTO DIFF [HEME] DAILY Lab 01/23/21 05:11 Ordered CBC WITH AUTO DIFF [HEME] DAILY Lab 01/24/21 05:11 Ordered CBC WITH AUTO DIFF [HEME] DAILY Lab 01/25/21 05:11 Ordered CBC WITH AUTO DIFF [HEME] DAILY Lab 01/26/21 05:11 Ordered CBC WITH AUTO DIFF [HEME] DAILY Lab 01/27/21 05:11 Ordered D-DIMER QUANTITATIVE [COAG] Q48H Lab 01/23/21 05:11 Ordered D-DIMER QUANTITATIVE [COAG] Q48H Lab 01/25/21 05:11 Ordered D-DIMER QUANTITATIVE [COAG] Q48H Lab 01/27/21 05:11 Ordered D-DIMER QUANTITATIVE [COAG] Q48H Lab 01/29/21 05:11 Ordered D-DIMER QUANTITATIVE [COAG] Q48H Lab 01/31/21 05:11 Ordered HEPATIC FUNCTION PANEL,[facility] [CHEM] DAILY Lab 01/22/21 10:10 Received HEPATIC FUNCTION PANEL,[facility] [CHEM] DAILY Lab 01/23/21 09:45 Ordered HEPATIC FUNCTION PANEL,[facility] [CHEM] DAILY Lab 01/23/21 21:45 Ordered HEPATIC FUNCTION PANEL,[facility] [CHEM] DAILY Lab 01/24/21 09:45 Ordered HEPATIC FUNCTION PANEL,[facility] [CHEM] DAILY Lab 01/24/21 21:45 Ordered HEPATIC FUNCTION PANEL,[facility] [CHEM] DAILY Lab 01/25/21 09:45 Ordered HEPATIC FUNCTION PANEL,[facility] [CHEM] DAILY Lab 01/25/21 21:45 Ordered HEPATIC FUNCTION PANEL,[facility] [CHEM] DAILY Lab 01/26/21 09:45 Ordered MAGNESIUM [CHEM] DAILY Lab 01/23/21 05:11 Ordered MAGNESIUM [CHEM] DAILY Lab 01/24/21 05:11 Ordered MAGNESIUM [CHEM] DAILY Lab 01/25/21 05:11 Ordered MAGNESIUM [CHEM] DAILY Lab 01/26/21 05:11 Ordered MAGNESIUM [CHEM] DAILY Lab 01/27/21 05:11 Ordered PROCALCITONIN [REF] Stat Lab 01/22/21 10:10 Received Acetaminophen [TylenoL] Med 01/22/21 09:41 Active 650 mg PO Q4H PRN Albuterol [Proventil Neb Soln] Med 01/22/21 09:46 Active 2.5 mg NEB Q2H PRN Docusate Sodium [Colace] Med 01/22/21 09:46 Active 100 mg PO DAILY PRN Famotidine [Pepcid] Med 01/22/21 10:00 Active 20 mg PO DAILY HYDROmorphone [Dilaudid] Med 01/22/21 09:46 Active 0.5 mg IVPUSH Q2H PRN Heparin Sodium Med 01/22/21 10:00 Active 7,500 units SUBCUT Q8H Ondansetron [Zofran ODT] Med 01/22/21 09:46 Active 4 mg PO Q6H PRN Ondansetron [Zofran] Med 01/22/21 09:46 Active 4 mg IV Q6H PRN Remdesivir 100 mg Med 01/22/21 21:00 Active Sodium Chloride 0.9% [Normal Saline] 100 ml IV Q24H Sodium Chloride 0.9% [Normal Saline] 1,000 ml Med 01/21/21 19:30 Active IV .BOLUS Sodium Chloride 0.9% [Saline Flush] Med 01/21/21 19:27 Active 10 ml FLUSH ASDIRECTED PRN Zinc Sulfate [Zincate] Med 01/22/21 10:45 Active 220 mg PO DAILY dexAMETHasone Med 01/22/21 09:45 Active 6 mg PO DAILY oxyCODONE Med 01/22/21 09:46 Active 5 mg PO Q4H PRN ED Antiemetic Medication Reflex [OM.PC] Stat Oth 01/21/21 19:28 Ordered Isolation [COMM] Stat Oth 01/22/21 09:41 Ordered Peripheral IV Insertion Adult [OM.PC] Stat Oth 01/21/21 19:27 Ordered RT Acapella [RESPCARE] Routine Oth 01/22/21 09:41 Active Resuscitation Status Routine Resus Stat 01/22/21 09:46 Ordered Medication Orders Acetaminophen (Acetaminophen 325 Mg Tab) 650 mg PO Q4H PRN PRN Reason: Fever Greater Than 101 Albuterol (Albuterol 0.083% 2.5 Mg/3 Ml Neb Soln) 2.5 mg NEB Q2H PRN PRN Reason: Shortness Of Breath/wheezing Dexamethasone (Dexamethasone 4 Mg Tab) 6 mg PO DAILY [facility] Stop: 01/30/21 09:01 Last Admin: 01/22/21 11:40 Dose: 6 mg Documented by: HUANG Docusate Sodium (Docusate Sodium 100 Mg Cap) 100 mg PO DAILY PRN PRN Reason: Constipation Famotidine (Famotidine 20 Mg Tab) 20 mg PO DAILY [facility] Last Admin: 01/22/21 11:40 Dose: 20 mg Documented by: HUANG Heparin Sodium (Porcine) (Heparin Sodium 5,000 Units/Ml Vial) 7,500 units SUB CUT Q8H [facility] Last Admin: 01/22/21 11:40 Dose: 7,500 units Documented by: HUANG Hydromorphone HCl (Hydromorphone 0.5 Mg/0.5 Ml Syringe) 0.5 mg IVPUSH Q2H PRN PRN Reason: Pain (severe 7-10) Sodium Chloride (Normal Saline) 1,000 mls @ 1,000 mls/hr IV .BOLUS [facility] Last Admin: 01/21/21 20:22 Dose: 1,000 mls/hr Documented by: KASIA Remdesivir 100 mg/ Sodium (Chloride) 100 mls @ 100 mls/hr IV Q24H [facility] Stop: 01/25/21 21:59 Ondansetron HCl (Ondansetron 4 Mg Tab.Dis) 4 mg PO Q6H PRN PRN Reason: nausea, able to take PO Ondansetron HCl (Ondansetron 4 Mg/2 Ml Sdv) 4 mg IV Q6H PRN PRN Reason: Nausea/Vomiting Oxycodone HCl (Oxycodone 5 Mg Tab) 5 mg PO Q4H PRN PRN Reason: Pain (moderate 4-6) Sodium Chloride (Sodium Chloride 0.9% 10 Ml Syringe) 10 ml FLUSH ASDIRECTED PRN PRN Reason: Keep Vein Open Last Admin: 01/21/21 20:20 Dose: 10 ml Documented by: KASIA Zinc Sulfate (Zinc Sulfate 220 Mg Cap) 220 mg PO DAILY [facility] Last Admin: 01/22/21 11:40 Dose: 220 mg Documented by: HUANG Assessment/Plan Comment:: 60-year-old male who presented to the emergency department with complaints of worsening Covid symptoms that started about 8 days ago. Patient found that his O2 saturations at home were in the 80s and elected to call EMS for transport to the hospital. EMS reported that the patient's O2 saturations were in the upper 80s on room air. CT scan did reveal that the patient has Covid pneumonia. Patient will be admitted [facility] floor with continuous pulse oximetry and telemetry. Plan: COVID-19, Hypoxia, Pneumonia due to COVID-19 virus * O2 to keep saturations greater than 92% * Respiratory therapy to titrate oxygen * Spirometry and Acapella * Nebs as needed * Day 1 of Remdesivir * Day 1 of Dexamethasone * CBC, BMP and LFTs daily * CRP and D-dimer every other day * central services tech and case management for discharge planning * Zinc supplement daily * Vitamin D3 5000 units daily * Ambulate in the room * Monitor intake and output * Daily * Vital signs every 4 hours * Prone positioning Code Status: Full Code GI: Pepcid DVT Prophylaxis: Heparin Primary Care Provider: Length of Stay: Case management and renal social worker for discharge planning. Patient will likely be here greater than 96 hours due to the treatment of Covid. - Mortality Measure Prognosis:: Good <Rosa Elena Anderson - Last Filed: 01/22/21 14:56> H&P History of Present Illness - General Admit Problem/Dx: Admission Diagnosis/Problem Admission Diagnosis/Problem Hypoxia Exam - Vital Signs Vital Signs: Last Vital Signs Temp 98.2 F 01/22/21 10:03 Pulse 77 01/22/21 10:03 Resp 16 01/22/21 10:03 BP 121/69 01/22/21 10:03 Pulse Ox 93 L 01/22/21 14:07 - Patient Data Lab Results Last 24 hrs: Laboratory Results - last 24 hr 01/21/21 01/21/21 01/21/21 Range/Units 19:58 19:58 19:58 WBC 3.68 L (4.23-9.07) K/mm3 RBC 4.63 (4.63-6.08) M/mm3 Hgb 13.6 L D (13.7-17.5) gm/dl Hct 40.0 L (40.1-51.0) % MCV 86.4 (79.0-92.2) fl MCH 29.4 (25.7-32.2) pg MCHC 34.0 (32.2-35.5) g/dl RDW Std Deviation 39.8 (35.1-43.9) fL Plt Count 130 L (163-337) K/mm3 MPV 9.8 (9.4-12.3) fl Neut % (Auto) 69.8 H (34.0-67.9) % Lymph % (Auto) 21.5 L (21.8-53.1) % Stanton % (Auto) 7.6 (5.3-12.2) % Eos % (Auto) 0.3 L (0.8-7.0) Baso % (Auto) 0.3 (0.1-1.2) % Neut # (Auto) 2.57 (1.78-5.38) K/mm3 Lymph # (Auto) 0.79 L (1.32-3.57) K/mm3 Stanton # (Auto) 0.28 L (0.30-0.82) K/mm3 Eos # (Auto) 0.01 L (0.04-0.54) K/mm3 Baso # (Auto) 0.01 (0.01-0.08) K/mm3 Manual Slide Review PT 10.7 (9.7-12.0) SECONDS INR 1.00 APTT 34.6 H (21.7-31.4) SECONDS D-Dimer, Quantitative 0.47 (0.19-0.50) mg/L Sodium 135 L (136-145) mEq/L Potassium 4.2 (3.5-5.1) mEq/L Chloride 97 L (98-107) mEq/L Carbon Dioxide 29 (21-32) mEq/L Anion Gap 13.2 (5-15) BUN 11 (7-18) mg/dL Creatinine 1.0 (0.7-1.3) mg/dL Est Cr Clr Drug Dosing TNP Estimated GFR (MDRD) > 60 (>60) mL/min BUN/Creatinine Ratio 11.0 L (14-18) Glucose 106 H (70-99) mg/dL Lactic Acid (0.4-2.0) mmol/L Calcium 7.8 L (8.5-10.1) mg/dL Ferritin (26-388) ng/ml Total Bilirubin 0.5 (0.2-1.0) mg/dL Direct Bilirubin (0.0-0.2) mg/dl Indirect Bilirubin AST 32 (15-37) U/L ALT 39 (16-63) U/L Alkaline Phosphatase 58 (46-116) U/L Lactate Dehydrogenase (85-227) U/L C-Reactive Protein 8.4 H* (<1.0) mg/dL Total Protein 6.8 (6.4-8.2) g/dl Albumin 3.1 L (3.4-5.0) g/dl Globulin 3.7 gm/dL Albumin/Globulin Ratio 0.8 L (1-2) Vitamin D 25-Hydroxy (30.0-100.0) ng/ml 01/21/21 01/21/21 01/22/21 Range/Units 19:58 21:50 10:10 WBC (4.23-9.07) K/mm3 RBC (4.63-6.08) M/mm3 Hgb (13.7-17.5) gm/dl Hct (40.1-51.0) % MCV (79.0-92.2) fl MCH (25.7-32.2) pg MCHC (32.2-35.5) g/dl RDW Std Deviation (35.1-43.9) fL Plt Count (163-337) K/mm3 MPV (9.4-12.3) fl Neut % (Auto) (34.0-67.9) % Lymph % (Auto) (21.8-53.1) % Stanton % (Auto) (5.3-12.2) % Eos % (Auto) (0.8-7.0) Baso % (Auto) (0.1-1.2) % Neut # (Auto) (1.78-5.38) K/mm3 Lymph # (Auto) (1.32-3.57) K/mm3 Stanton # (Auto) (0.30-0.82) K/mm3 Eos # (Auto) (0.04-0.54) K/mm3 Baso # (Auto) (0.01-0.08) K/mm3 Manual Slide Review PT (9.7-12.0) SECONDS INR APTT (21.7-31.4) SECONDS D-Dimer, Quantitative (0.19-0.50) mg/L Sodium (136-145) mEq/L Potassium (3.5-5.1) mEq/L Chloride (98-107) mEq/L Carbon Dioxide (21-32) mEq/L Anion Gap (5-15) BUN (7-18) mg/dL Creatinine (0.7-1.3) mg/dL Est Cr Clr Drug Dosing Estimated GFR (MDRD) (>60) mL/min BUN/Creatinine Ratio (14-18) Glucose (70-99) mg/dL Lactic Acid 0.7 (0.4-2.0) mmol/L Calcium (8.5-10.1) mg/dL Ferritin 2413 H (26-388) ng/ml Total Bilirubin 0.5 (0.2-1.0) mg/dL Direct Bilirubin 0.20 (0.0-0.2) mg/dl Indirect Bilirubin 0.30 AST 34 (15-37) U/L ALT 40 (16-63) U/L Alkaline Phosphatase 58 (46-116) U/L Lactate Dehydrogenase (85-227) U/L C-Reactive Protein (<1.0) mg/dL Total Protein 6.7 (6.4-8.2) g/dl Albumin 3.1 L (3.4-5.0) g/dl Globulin 3.6 gm/dL Albumin/Globulin Ratio 0.9 L (1-2) Vitamin D 25-Hydroxy (30.0-100.0) ng/ml 01/22/21 01/22/21 Range/Units 10:10 10:10 WBC (4.23-9.07) K/mm3 RBC (4.63-6.08) M/mm3 Hgb (13.7-17.5) gm/dl Hct (40.1-51.0) % MCV (79.0-92.2) fl MCH (25.7-32.2) pg MCHC (32.2-35.5) g/dl RDW Std Deviation (35.1-43.9) fL Plt Count (163-337) K/mm3 MPV (9.4-12.3) fl Neut % (Auto) (34.0-67.9) % Lymph % (Auto) (21.8-53.1) % Stanton % (Auto) (5.3-12.2) % Eos % (Auto) (0.8-7.0) Baso % (Auto) (0.1-1.2) % Neut # (Auto) (1.78-5.38) K/mm3 Lymph # (Auto) (1.32-3.57) K/mm3 Stanton # (Auto) (0.30-0.82) K/mm3 Eos # (Auto) (0.04-0.54) K/mm3 Baso # (Auto) (0.01-0.08) K/mm3 Manual Slide Review PT (9.7-12.0) SECONDS INR APTT (21.7-31.4) SECONDS D-Dimer, Quantitative (0.19-0.50) mg/L Sodium (136-145) mEq/L Potassium (3.5-5.1) mEq/L Chloride (98-107) mEq/L Carbon Dioxide (21-32) mEq/L Anion Gap (5-15) BUN (7-18) mg/dL Creatinine (0.7-1.3) mg/dL Est Cr Clr Drug Dosing Estimated GFR (MDRD) (>60) mL/min BUN/Creatinine Ratio (14-18) Glucose (70-99) mg/dL Lactic Acid (0.4-2.0) mmol/L Calcium (8.5-10.1) mg/dL Ferritin (26-388) ng/ml Total Bilirubin 0.4 (0.2-1.0) mg/dL Direct Bilirubin 0.10 (0.0-0.2) mg/dl Indirect Bilirubin 0.30 AST 38 H (15-37) U/L ALT 45 (16-63) U/L Alkaline Phosphatase 62 (46-116) U/L Lactate Dehydrogenase 324 H (85-227) U/L C-Reactive Protein (<1.0) mg/dL Total Protein 7.5 (6.4-8.2) g/dl Albumin 3.3 L (3.4-5.0) g/dl Globulin 4.2 gm/dL Albumin/Globulin Ratio 0.8 L (1-2) Vitamin D 25-Hydroxy 31.9 (30.0-100.0) ng/ml Result Diagrams: 01/21/21 19:58 01/21/21 19:58 Sepsis Event Note - Focused Exam Vital Signs: Vital Signs Temp Pulse Pulse Resp BP BP Pulse Ox 01/22/21 14:07 01/22/21 10:03 98.2 F 77 16 121/69 97 01/22/21 05:35 68 18 120/70 94 L 01/22/21 04:37 83 20 118/73 96 01/22/21 03:20 80 18 94 L Pulse Ox 01/22/21 14:07 93 L 01/22/21 10:03 01/22/21 05:35 01/22/21 04:37 01/22/21 03:20 Orders Last 24hrs: Active Orders 24 hr Category Date Time Status Patient Status [ADT] Routine ADT 01/22/21 09:01 Active Cardiac Monitoring [RC] . DIRECTED Care 01/21/21 19:28 Active Height and Weight [RC] 0600 Care 01/22/21 09:46 Active Intake and Output [RC] 04,16 Care 01/22/21 09:46 Active Nurse Communication: Isolation [RC] ASDIRECTED Care 01/22/21 09:41 Active Oxygen Therapy [RC] PRN Care 01/21/21 19:28 Active Positioning, Patient [RC] ASDIRECTED Care 01/22/21 09:41 Active RT Aerosol Therapy [RC] ASDIRECTED Care 01/22/21 09:50 Active RT Incentive Spirometry [RC] ASDIRECTED Care 01/22/21 09:41 Active Up to Chair [RC] ASDIRECTED Care 01/22/21 09:46 Active Vital Signs [RC] Q4HR Care 01/22/21 09:53 Active Consult to Case Management/[employer] Counselor [CONS] Cons 01/22/21 09:46 Active Routine Respiratory Care Assess and Treatment [CONS] Routine Cons 01/22/21 09:51 Active Regular Diet [DIET] Diet 01/22/21 Lunch Active BASIC METABOLIC PANEL,BMP [CHEM] DAILY Lab 01/23/21 05:11 Ordered BASIC METABOLIC PANEL,BMP [CHEM] DAILY Lab 01/24/21 05:11 Ordered BASIC METABOLIC PANEL,BMP [CHEM] DAILY Lab 01/25/21 05:11 Ordered BASIC METABOLIC PANEL,BMP [CHEM] DAILY Lab 01/26/21 05:11 Ordered BASIC METABOLIC PANEL,BMP [CHEM] DAILY Lab 01/27/21 05:11 Ordered C-REACTIVE PROTEIN [CHEM] Q48H Lab 01/24/21 09:41 Ordered C-REACTIVE PROTEIN [CHEM] Q48H Lab 01/26/21 09:41 Ordered C-REACTIVE PROTEIN [CHEM] Q48H Lab 01/28/21 09:41 Ordered C-REACTIVE PROTEIN [CHEM] Q48H Lab 01/30/21 09:41 Ordered C-REACTIVE PROTEIN [CHEM] Q48H Lab 02/01/21 09:41 Ordered CBC WITH AUTO DIFF [HEME] DAILY Lab 01/23/21 05:11 Ordered CBC WITH AUTO DIFF [HEME] DAILY Lab 01/24/21 05:11 Ordered CBC WITH AUTO DIFF [HEME] DAILY Lab 01/25/21 05:11 Ordered CBC WITH AUTO DIFF [HEME] DAILY Lab 01/26/21 05:11 Ordered CBC WITH AUTO DIFF [HEME] DAILY Lab 01/27/21 05:11 Ordered D-DIMER QUANTITATIVE [COAG] Q48H Lab 01/23/21 05:11 Ordered D-DIMER QUANTITATIVE [COAG] Q48H Lab 01/25/21 05:11 Ordered D-DIMER QUANTITATIVE [COAG] Q48H Lab 01/27/21 05:11 Ordered D-DIMER QUANTITATIVE [COAG] Q48H Lab 01/29/21 05:11 Ordered D-DIMER QUANTITATIVE [COAG] Q48H Lab 01/31/21 05:11 Ordered HEPATIC FUNCTION PANEL,HFP [CHEM] DAILY Lab 01/22/21 10:10 Stop Req HEPATIC FUNCTION PANEL,HFP [CHEM] DAILY Lab 01/23/21 09:45 Ordered HEPATIC FUNCTION PANEL,HFP [CHEM] DAILY Lab 01/24/21 09:45 Ordered HEPATIC FUNCTION PANEL,HFP [CHEM] DAILY Lab 01/25/21 09:45 Ordered HEPATIC FUNCTION PANEL,HFP [CHEM] DAILY Lab 01/26/21 09:45 Ordered MAGNESIUM [CHEM] DAILY Lab 01/23/21 05:11 Ordered MAGNESIUM [CHEM] DAILY Lab 01/24/21 05:11 Ordered MAGNESIUM [CHEM] DAILY Lab 01/25/21 05:11 Ordered MAGNESIUM [CHEM] DAILY Lab 01/26/21 05:11 Ordered MAGNESIUM [CHEM] DAILY Lab 01/27/21 05:11 Ordered PROCALCITONIN [REF] Stat Lab 01/22/21 10:10 Received Acetaminophen [TylenoL] Med 01/22/21 09:41 Active 650 mg PO Q4H PRN Albuterol [Proventil Neb Soln] Med 01/22/21 09:46 Active 2.5 mg NEB Q2H PRN Cholecalciferol (Vitamin D3) [Vitamin D3] Med 01/23/21 09:00 Active 5,000 unit PO DAILY Docusate Sodium [Colace] Med 01/22/21 09:46 Active 100 mg PO DAILY PRN Famotidine [Pepcid] Med 01/22/21 10:00 Active 20 mg PO DAILY HYDROmorphone [Dilaudid] Med 01/22/21 09:46 Active 0.5 mg IVPUSH Q2H PRN Heparin Sodium Med 01/22/21 10:00 Active 7,500 units SUBCUT Q8H Ondansetron [Zofran ODT] Med 01/22/21 09:46 Active 4 mg PO Q6H PRN Ondansetron [Zofran] Med 01/22/21 09:46 Active 4 mg IV Q6H PRN Remdesivir 100 mg Med 01/22/21 21:00 Active Sodium Chloride 0.9% [Normal Saline] 100 ml IV Q24H Sodium Chloride 0.9% [Normal Saline] 1,000 ml Med 01/21/21 19:30 Active IV .BOLUS Sodium Chloride 0.9% [Saline Flush] Med 01/21/21 19:27 Active 10 ml FLUSH ASDIRECTED PRN Zinc Sulfate [Zincate] Med 01/22/21 10:45 Active 220 mg PO DAILY dexAMETHasone Med 01/22/21 09:45 Active 6 mg PO DAILY oxyCODONE Med 01/22/21 09:46 Active 5 mg PO Q4H PRN ED Antiemetic Medication Reflex [OM.PC] Stat Oth 01/21/21 19:28 Ordered Isolation [COMM] Stat Oth 01/22/21 09:41 Ordered Peripheral IV Insertion Adult [OM.PC] Stat Oth 01/21/21 19:27 Ordered RT Acapella [RESPCARE] Routine Oth 01/22/21 09:41 Active Resuscitation Status Routine Resus Stat 01/22/21 09:46 Ordered Medication Orders Acetaminophen (Acetaminophen 325 Mg Tab) 650 mg PO Q4H PRN PRN Reason: Fever Greater Than 101 Albuterol (Albuterol 0.083% 2.5 Mg/3 Ml Neb Soln) 2.5 mg NEB Q2H PRN PRN Reason: Shortness Of Breath/wheezing Cholecalciferol (Cholecalciferol (Vitamin D3) 5,000 Unit Cap) 5,000 unit PO DAILY [facility] Dexamethasone (Dexamethasone 4 Mg Tab) 6 mg PO DAILY [facility] Stop: 01/30/21 09:01 Last Admin: 01/22/21 11:40 Dose: 6 mg Documented by: HUANG Docusate Sodium (Docusate Sodium 100 Mg Cap) 100 mg PO DAILY PRN PRN Reason: Constipation Famotidine (Famotidine 20 Mg Tab) 20 mg PO DAILY [facility] Last Admin: 01/22/21 11:40 Dose: 20 mg Documented by: HUANG Heparin Sodium (Porcine) (Heparin Sodium 5,000 Units/Ml Vial) 7,500 units SUBCUT Q8H [facility] Last Admin: 01/22/21 11:40 Dose: 7,500 units Documented by: HUANG Hydromorphone HCl (Hydromorphone 0.5 Mg/0.5 Ml Syringe) 0.5 mg IVPUSH Q2H PRN PRN Reason: Pain (severe 7-10) Sodium Chloride (Normal Saline) 1,000 mls @ 1,000 mls/hr IV .BOLUS [facility] Last Admin: 01/21/21 20:22 Dose: 1,000 mls/hr Documented by: KASIA Remdesivir 100 mg/ Sodium (Chloride) 100 mls @ 100 mls/hr IV Q24H [facility] Stop: 01/25/21 21:59 Ondansetron HCl (Ondansetron 4 Mg Tab.Dis) 4 mg PO Q6H PRN PRN Reason: nausea, able to take PO Ondansetron HCl (Ondansetron 4 Mg/2 Ml Sdv) 4 mg IV Q6H PRN PRN Reason: Nausea/Vomiting Oxycodone HCl (Oxycodone 5 Mg Tab) 5 mg PO Q4H PRN PRN Reason: Pain (moderate 4-6) Sodium Chloride (Sodium Chloride 0.9% 10 Ml Syringe) 10 ml FLUSH ASDIRECTED PRN PRN Reason: Keep Vein Open Last Admin: 01/21/21 20:20 Dose: 10 ml Documented by: KASIA Zinc Sulfate (Zinc Sulfate 220 Mg Cap) 220 mg PO DAILY [facility] Last Admin: 01/22/21 11:40 Dose: 220 mg Documented by: HUANG Assessment/Plan Comment:: Patient has been seen and examined. Agree with assessment and plan and n changes in present management. Physical exam: cvs: [id number] Resp: course bilateral abd: sntnd Ext: no edema
[2021-01-22] MEDS: Pantoprazole 40 MG Tab.CR PO SCH (20:26)
[2021-01-22] MEDS ORDERED: REMDESIVIR 100 MG in Sodium Chloride 0.9% 100 ML IV SCH (21:00)
[2021-01-23] MEDS: Heparin Sodium 5,000 Units/ML Vial SUBCUT SCH ×3 (00:53→09:39)
--- NOTE | 2021-01-23 08:39 | PCM.DCSUM1 ---
Discharge Summary - Hospital Course Free Text/Narrative:: COVID-19, Hypoxia, Pneumonia due to COVID-19 virus * O2 to keep saturations greater than 92% * Respiratory therapy to titrate oxygen * Spirometry and Acapella * Nebs as needed * Day 1 of Remdesivir * Day 1 of Dexamethasone * CBC, BMP and LFTs daily * CRP and D-dimer every other day * director outpatient services and case management for discharge planning * Zinc supplement daily * Vitamin D3 5000 units daily * Ambulate in the room * Monitor intake and output * Daily * Vital signs every 4 hours * Prone positioning * * * * 01/23/21 patient is now on only 1 liter, walking >600 feet, yelling over phone at family. he is requesting home and we agree. he will return if worsened symptoms, will go home with dexamethasone to finish 10 days. O2, duonebs and nebulizer, mucinex. Code Status: Full Code GI: Pepcid DVT Prophylaxis: Heparin Brief History: 60yom presented with worsening Covid symptoms. DX Covid about 8 days ago. subjective fever, diarrhea for 1 day ,shortness of breath and worsening cough productive, He did admit that he had a Z-Av at home and elected to take this and completed the course of antibiotic yesterday. He did not get the Covid vaccination. Modified Katlyn Scale: No Signif.Disability Despite Sympt.Able to Carry Out Usual Act./Duties Modified Reagan Scale Score: 1 - Discharge Data Discharge Date: 01/23/21 Discharge Disposition: Home, Self-Care 01 Condition: Stable - Referral to Home Health Date of Face to Face Encounter: 01/23/21 Primary Care Physician: Isaac Dickson MD - Patient Summary/Data Consults: Consultations 01/22/21 09:46 Consult to Case Management/[employer] [CONS] Routine 01/22/21 09:51 Respiratory Care Assess and Treatment [CONS] Routine - Patient Instructions Diet: Heart Healthy Diet Activity: As Tolerated Driving: May Drive Today Showering/Bathing: May Shower Notify Provider of: Fever, Increased Pain, Nausea and/or Vomiting Other/Special Instructions: if worsening shortness of breah wo return, also to visit pcp within 1 week and verbally agreed - Discharge Plan *PRESCRIPTION DRUG MONITORING PROGRAM REVIEWED*: Not Applicable *COPY OF PRESCRIPTION DRUG MONITORING REPORT IN PATIENT NIKHIL: Not Applicable Prescriptions/Med Rec: Docusate Sodium [Colace] 100 mg PO DAILY PRN #30 cap PRN Reason: Constipation dexAMETHasone [Dexamethasone] 6 mg PO DAILY 9 Days #9 tablet Albuterol/Ipratropium [DuoNeb 3.0-0.5 MG/3 ML] 3 ml .XX Q6H 7 Days #30 ml Albuterol [Proventil Neb Soln] 2.5 mg NEB Q2H PRN #1 neb PRN Reason: Shortness Of Breath/wheezing Cholecalciferol (Vitamin D3) [Vitamin D3] 5,000 unit PO DAILY #30 cap Zinc Sulfate [Zincate] 220 mg PO DAILY #30 cap Home Medications: Home Meds Lansoprazole [Prevacid] 30 mg PO BID 01/22/21 [History] Albuterol [Proventil Neb Soln] 2.5 mg NEB Q2H PRN #1 neb 01/23/21 [Rx] Albuterol/Ipratropium [DuoNeb 3.0-0.5 MG/3 ML] 3 ml .XX Q6H 7 Days #30 ml 01/23/21 [Rx] Cholecalciferol (Vitamin D3) [Vitamin D3] 5,000 unit PO DAILY #30 cap 01/23/21 [Rx] Docusate Sodium [Colace] 100 mg PO DAILY PRN #30 cap 01/23/21 [Rx] Zinc Sulfate [Zincate] 220 mg PO DAILY #30 cap 01/23/21 [Rx] dexAMETHasone [Dexamethasone] 6 mg PO DAILY 9 Days #9 tablet 01/23/21 [Rx] Oxygen Therapy Mode: Nasal Cannula Oxygen Flow Rate (L/min): 1 Patient Handouts: COVID-19 Frequently Asked Questions, 10 Things You Can Do to Manage Your COVID-19 Symptoms at Home - CDC (11/21/2019), Sepsis, Self Care, Adult Forms: ED Department Discharge Referrals: Isaac Dickson MD [Primary Care Provider] - ([facility] phone number is [phone], fax # is [phone]) - Discharge Summary/Plan Comment DC Time >30 min.: Yes Total # of Minutes for Discharge Time: 36min - Patient Data Vitals - Most Recent: Last Vital Signs Temp 98.4 F 01/22/21 23:28 Pulse 61 09/03/21 04:02 Resp 20 01/23/21 04:02 BP 98/61 01/23/21 04:02 Pulse Ox 93 L 01/23/21 04:02 Weight - Most Recent: 208 lb 12.8 oz I&O - Last 24 hours: Intake & Output 01/22/21 01/23/21 01/23/21 22:59 06:59 14:59 Intake Total 1140 897 Output Total 700 1000 Balance 440 -103 Lab Results - Last 24 hrs: Laboratory Results - last 24 hr 01/22/21 01/22/21 01/22/21 Range/Units 10:10 10:10 10:10 WBC (4.23-9.07) K/mm3 RBC (4.63-6.08) M/mm3 Hgb (13.7-17.5) gm/dl Hct (40.1-51.0) % MCV (79.0-92.2) fl MCH (25.7-32.2) pg MCHC (32.2-35.5) g/dl RDW Std Deviation (35.1-43.9) fL Plt Count (163-337) K/mm3 MPV (9.4-12.3) fl Neut % (Auto) (34.0-67.9) % Lymph % (Auto) (21.8-53.1) % Churchill % (Auto) (5.3-12.2) % Eos % (Auto) (0.8-7.0) Baso % (Auto) (0.1-1.2) % Neut # (Auto) (1.78-5.38) K/mm3 Lymph # (Auto) (1.32-3.57) K/mm3 Churchill # (Auto) (0.30-0.82) K/mm3 Eos # (Auto) (0.04-0.54) K/mm3 Baso # (Auto) (0.01-0.08) K/mm3 Manual Slide Review D-Dimer, Quantitative (0.19-0.50) mg/L Sodium (136-145) mEq/L Potassium (3.5-5.1) mEq/L Chloride (98-107) mEq/L Carbon Dioxide (21-32) mEq/L Anion Gap (5-15) BUN (7-18) mg/dL Creatinine (0.7-1.3) mg/dL Est Cr Clr Drug Dosing mL/min Estimated GFR (MDRD) (>60) mL/min BUN/Creatinine Ratio (14-18) Glucose (70-99) mg/dL Calcium (8.5-10.1) mg/dL Magnesium (1.8-2.4) mg/dL Ferritin 2413 H (26-388) ng/ml Total Bilirubin 0.4 (0.2-1.0) mg/dL Direct Bilirubin 0.10 (0.0-0.2) mg/dl Indirect Bilirubin 0.30 AST 38 H (15-37) U/L ALT 45 (16-63) U/L Alkaline Phosphatase 62 (46-116) U/L Lactate Dehydrogenase 324 H (85-227) U/L Total Protein 7.5 (6.4-8.2) g/dl Albumin 3.3 L (3.4-5.0) g/dl Globulin 4.2 gm/dL Albumin/Globulin Ratio 0.8 L (1-2) Vitamin D 25-Hydroxy (30.0-100.0) ng/ml Procalcitonin 0.11 H ng/mL 01/22/21 01/23/21 01/23/21 Range/Units 10:10 04:33 04:33 WBC 3.73 L (4.23-9.07) K/mm3 RBC 4.77 (4.63-6.08) M/mm3 Hgb 13.8 (13.7-17.5) gm/dl Hct 41.7 (40.1-51.0) % MCV 87.4 (79.0-92.2) fl MCH 28.9 (25.7-32.2) pg MCHC 33.1 (32.2-35.5) g/dl RDW Std Deviation 41.5 (35.1-43.9) fL Plt Count 184 (163-337) K/mm3 MPV 10.7 (9.4-12.3) fl Neut % (Auto) 58.5 (34.0-67.9) % Lymph % (Auto) 27.6 (21.8-53.1) % Churchill % (Auto) 13.1 H (5.3-12.2) % Eos % (Auto) 0 L (0.8-7.0) Baso % (Auto) 0.3 (0.1-1.2) % Neut # (Auto) 2.18 (1.78-5.38) K/mm3 Lymph # (Auto) 1.03 L (1.32-3.57) K/mm3 Churchill # (Auto) 0.49 (0.30-0.82) K/mm3 Eos # (Auto) 0.00 L (0.04-0.54) K/mm3 Baso # (Auto) 0.01 (0.01-0.08) K/mm3 Manual Slide Review Abnormal smear D-Dimer, Quantitative 0.29 (0.19-0.50) mg/L Sodium (136-145) mEq/L Potassium (3.5-5.1) mEq/L Chloride (98-107) mEq/L Carbon Dioxide (21-32) mEq/L Anion Gap (5-15) BUN (7-18) mg/dL Creatinine (0.7-1.3) mg/dL Est Cr Clr Drug Dosing mL/min Estimated GFR (MDRD) (>60) mL/min BUN/Creatinine Ratio (14-18) Glucose (70-99) mg/dL Calcium (8.5-10.1) mg/dL Magnesium (1.8-2.4) mg/dL Ferritin (26-388) ng/ml Total Bilirubin (0.2-1.0) mg/dL Direct Bilirubin (0.0-0.2) mg/dl Indirect Bilirubin AST (15-37) U/L ALT (16-63) U/L Alkaline Phosphatase (46-116) U/L Lactate Dehydrogenase (85-227) U/L Total Protein (6.4-8.2) g/dl Albumin (3.4-5.0) g/dl Globulin gm/dL Albumin/Globulin Ratio (1-2) Vitamin D 25-Hydroxy 31.9 (30.0-100.0) ng/ml Procalcitonin ng/mL 01/23/21 Range/Units 04:33 WBC (4.23-9.07) K/mm3 RBC (4.63-6.08) M/mm3 Hgb (13.7-17.5) gm/dl Hct (40.1-51.0) % MCV (79.0-92.2) fl MCH (25.7-32.2) pg MCHC (32.2-35.5) g/dl RDW Std Deviation (35.1-43.9) fL Plt Count (163-337) K/mm3 MPV (9.4-12.3) fl Neut % (Auto) (34.0-67.9) % Lymph % (Auto) (21.8-53.1) % Churchill % (Auto) (5.3-12.2) % Eos % (Auto) (0.8-7.0) Baso % (Auto) (0.1-1.2) % Neut # (Auto) (1.78-5.38) K/mm3 Lymph # (Auto) (1.32-3.57) K/mm3 Churchill # (Auto) (0.30-0.82) K/mm3 Eos # (Auto) (0.04-0.54) K/mm3 Baso # (Auto) (0.01-0.08) K/mm3 Manual Slide Review D-Dimer, Quantitative (0.19-0.50) mg/L Sodium 140 (136-145) mEq/L Potassium 4.7 (3.5-5.1) mEq/L Chloride 102 (98-107) mEq/L Carbon Dioxide 27 (21-32) mEq/L Anion Gap 15.7 H (5-15) BUN 13 (7-18) mg/dL Creatinine 0.8 (0.7-1.3) mg/dL Est Cr Clr Drug Dosing 91.81 mL/min Estimated GFR (MDRD) > 60 (>60) mL/min BUN/Creatinine Ratio 16.3 (14-18) Glucose 122 H (70-99) mg/dL Calcium 8.1 L (8.5-10.1) mg/dL Magnesium 2.2 (1.8-2.4) mg/dL Ferritin (26-388) ng/ml Total Bilirubin (0.2-1.0) mg/dL Direct Bilirubin (0.0-0.2) mg/dl Indirect Bilirubin AST (15-37) U/L ALT (16-63) U/L Alkaline Phosphatase (46-116) U/L Lactate Dehydrogenase (85-227) U/L Total Protein (6.4-8.2) g/dl Albumin (3.4-5.0) g/dl Globulin gm/dL Albumin/Globulin Ratio (1-2) Vitamin D 25-Hydroxy (30.0-100.0) ng/ml Procalcitonin ng/mL Med Orders - Current: Current Medications Acetaminophen (Acetaminophen 325 Mg Tab) 650 mg PO Q4H PRN PRN Reason: Fever Greater Than 101 Albuterol (Albuterol 0.083% 2.5 Mg/3 Ml Neb Soln) 2.5 mg NEB Q2H PRN PRN Reason: Shortness Of Breath/wheezing Last Admin: 01/22/21 20:40 Dose: 2.5 mg Documented by: Cholecalciferol (Cholecalciferol (Vitamin D3) 5,000 Unit Cap) 5,000 unit PO DAILY [facility] Dexamethasone (Dexamethasone 4 Mg Tab) 6 mg PO DAILY [facility] Stop: 01/30/21 09:01 Last Admin: 01/22/21 11:40 Dose: 6 mg Documented by: Docusate Sodium (Docusate Sodium 100 Mg Cap) 100 mg PO DAILY PRN PRN Reason: Constipation Famotidine (Famotidine 20 Mg Tab) 20 mg PO DAILY [facility] Last Admin: 01/22/21 11:40 Dose: 20 mg Documented by: Heparin Sodium (Porcine) (Heparin Sodium 5,000 Units/Ml Vial) 7,500 units SUBCUT Q8H [facility] Last Admin: 01/23/21 01:08 Dose: Not Given Documented by: Hydromorphone HCl (Hydromorphone 0.5 Mg/0.5 Ml Syringe) 0.5 mg IVPUSH Q2H PRN PRN Reason: Pain (severe 7-10) Remdesivir 100 mg/ Sodium (Chloride) 100 mls @ 100 mls/hr IV Q24H [facility] Stop: 01/25/21 21:59 Last Admin: 01/22/21 20:27 Dose: 100 mls/hr Documented by: Ondansetron HCl (Ondansetron 4 Mg Tab.Dis) 4 mg PO Q6H PRN PRN Reason: nausea, able to take PO Ondansetron HCl (Ondansetron 4 Mg/2 Ml Sdv) 4 mg IV Q6H PRN PRN Reason: Nausea/Vomiting Oxycodone HCl (Oxycodone 5 Mg Tab) 5 mg PO Q4H PRN PRN Reason: Pain (moderate 4-6) Pantoprazole Sodium (Pantoprazole 40 Mg Tab.Cr) 40 mg PO BID [facility] Last Admin: 01/22/21 20:26 Dose: 40 mg Documented by: Sodium Chloride (Sodium Chloride 0.9% 10 Ml Syringe) 10 ml FLUSH ASDIRECTED PRN PRN Reason: Keep Vein Open Last Admin: 01/21/21 20:20 Dose: 10 ml Documented by: Zinc Sulfate (Zinc Sulfate 220 Mg Cap) 220 mg PO DAILY [facility] Last Admin: 01/22/21 11:40 Dose: 220 mg Documented by: Discontinued Medications Dexamethasone (Dexamethasone 4 Mg/Ml Sdv) 6 mg IVPUSH ONETIME ONE Stop: 01/21/21 19:30 Last Admin: 01/21/21 20:22 Dose: 6 mg Documented by: Sodium Chloride (Normal Saline) 1,000 mls @ 1,000 mls/hr IV .BOLUS [facility] Last Admin: 01/21/21 20:22 Dose: 1,000 mls/hr Documented by: Remdesivir 200 mg/ Sodium (Chloride) 250 mls @ 250 mls/hr IV ONETIME ONE Stop: 01/21/21 21:35 Last Admin: 01/21/21 22:16 Dose: 250 mls/hr Documented by: Iopamidol (Iopamidol 755 Mg/Ml 100 Ml Bottle) 100 ml IVPUSH ONETIME ONE Stop: 01/21/21 19:44 Last Admin: 01/22/21 10:49 Dose: Not Given Documented by: Ondansetron HCl (Ondansetron 4 Mg/2 Ml Sdv) 4 mg IVPUSH ONETIME ONE Stop: 01/21/21 19:28 Last Admin: 01/21/21 20:18 Dose: 4 mg Documented by: Promethazine HCl/Codeine (Codeine/Promethazine 10-6.25 Mg/5 Ml Syrup 5 Ml Ud Cup) 10 ml PO ONETIME ONE Stop: 01/22/21 08:43 Last Admin: 01/22/21 10:12 Dose: Not Given Documented by:
[2021-01-23] MEDS ORDERED: Cholecalciferol (Vitamin D3) 5,000 UNIT Cap PO SCH (09:00)
[2021-01-23 09:34] VITALS: BP 115/61; PULSE 85
[2021-01-23] MEDS: Famotidine 20 MG Tab PO SCH (09:38)
[2021-01-23] MEDS: Dexamethasone 4 MG Tab PO SCH (09:38)
[2021-01-23] MEDS: Zinc Sulfate 220 MG Cap PO SCH (09:39)
[2021-01-23] MEDS: Pantoprazole 40 MG Tab.CR PO SCH (09:39)
[2021-01-23] MEDS ORDERED: REMDESIVIR 100 MG in Sodium Chloride 0.9% 100 ML IV SCH (09:45)
== END 2021-01-23 12:20 | disposition home or self-care (01) | DRG 137 ==
LOC: JD.ED 19:07 → JD.MS 01-22 09:01
PROVIDERS: ADMIT Internal Medicine; ATTEND Internal Medicine
PROC: 8E0ZXY6 Isolation (ICD-10-PCS; principal; 2021-01-22)
PROC: XW033E5 Introduction of Remdesivir Anti-infective into Peripheral Vein, Percutaneous Approach, New Technology Group 5 (ICD-10-PCS; 2021-01-22)
PROC: 3E0333Z Introduction of Anti-inflammatory into Peripheral Vein, Percutaneous Approach (ICD-10-PCS; 2021-01-22)
DX: U07.1 COVID-19 (principal); J12.82 Pneumonia due to coronavirus disease 2019; E78.00 Pure hypercholesterolemia, unspecified; K21.9 Gastro-esophageal reflux disease without esophagitis; E66.9 Obesity, unspecified; R09.02 Hypoxemia; Z68.32 Body mass index [BMI] 32.0-32.9, adult; Z87.442 Personal history of urinary calculi
CPT/HCPCS: 36415; 71275; 71275-26; 80048; 80053; 80076; 82306; 82728; 83605; 83615; 83735; 84145; 85025; 85379; 85610; 85730; 86140; 94640; 94667; 94668; 94762; 96374; 96375; 99284; 99285-25; A9270-GY; J1100; J1644; J2405; J7030; J7050; J8540

== ENCOUNTER 2022-10-13 21:28 | Emergency (ER) | payer BC ==
[2022-10-14 00:01] VITALS: BP 132/81; PULSE 74
== END 2022-10-14 00:01 | disposition left against medical advice (07) ==
LOC: JD.ED 21:28
DX: Z53.21 Procedure and treatment not carried out due to patient leaving prior to being seen by health care provider (principal)
CPT/HCPCS: 93005